=== PATIENT | female | born 1965 | race Caucasian/White ===

== ENCOUNTER → 2019-04-25 07:18 | Outpatient (CLI) | payer BC, SELFPAY ==
--- NOTE | ~2019-04-25 | MM_ITS ---
EXAMINATION: MM screening stuart BI w buddy HISTORY: Screening mammogram TECHNIQUE: Craniocaudal and mediolateral oblique 3-D tomosynthesis images were obtained and synthetic 2-D images were generated. CAD analysis was submitted and interpreted. COMPARISON: No prior mammogram is available for comparison at this institution. BREAST PARENCHYMAL COMPOSITION: There are scattered areas of fibroglandular density. FINDINGS: There is a developing mass in the upper central aspect of the right breast anteriorly and a focal asymmetry laterally in the left breast on CC view. There are benign right breast calcification s. IMPRESSION: 1. Developing right breast mass and focal left breast asymmetry. 2. Additional mammographic views and possible breast ultrasound are recommended. BI-RADS Category 0: Incomplete: Needs additional imaging evaluation. Reviewed, dictated and finalized at location A. IMPRESSION: 1. Developing right breast mass and focal left breast asymmetry. 2. Additional mammographic views and possible breast ultrasound are recommended . BI-RADS Category 0: Incomplete: Needs additional imaging evaluation.
== END ==
PROVIDERS: PCP Family Medicine; Visit Provider Family Medicine
DX: Z12.31 Encounter for screening mammogram for malignant neoplasm of breast (principal); R92.8 Other abnormal and inconclusive findings on diagnostic imaging of breast
CPT/HCPCS: 77063; 77067

== ENCOUNTER → 2019-05-10 08:51 | Outpatient (CLI) | payer BC, SELFPAY ==
--- NOTE | ~2019-05-10 | MMUS_ITS ---
EXAMINATION: MM diagnostic mammo BI, US breast RT limited HISTORY: Right breast mass and left breast asymmetry on screening mammogram TECHNIQUE: Additional 3-D tomosynthesis images of the breasts were performed and synthetic 2-D images were generated. CAD analysis was submitted and interpreted. High resolution limited right breast ult rasound was performed. COMPARISON: 04/24/2017, 11/07/2017, 11/05/2016 FINDINGS: MAMMOGRAPHIC FINDINGS: Left breast: No persistent asymmetry is identified with spot compression of the left breast. There is a return to baseline fibroglandular appearance. Right breast: There is a 7 mm oval, obscured, low density mass in the anterior third of the breast at the 12:00 location 2 cm from the nipple. No suspicious architectural distortion or calcification are identified. ULTRASOUND: There is an 8 mm x 6 mm cyst at the 12:00 location near the right nipple corresponding to the mammogr aphic finding in question. IMPRESSION: 1. No mammographic or sonographic evidence of malignancy. 2. Recommend routine screening mammography in one year. BI-RADS Category 2: Benign finding(s). Reviewed, dictated and finalized at location A. IMPRESSION: 1. No mammographic or sonographic evidence of malignancy. 2. Recommend routine screening mammography in one year. BI-RADS Category 2: Benign finding(s).
== END ==
PROVIDERS: PCP Family Medicine; Visit Provider Family Medicine
DX: R92.8 Other abnormal and inconclusive findings on diagnostic imaging of breast (principal)
CPT/HCPCS: 76642; 77066

== ENCOUNTER 2020-03-31 07:28 | Outpatient (CLI) | payer OTHER, SELFPAY ==
--- NOTE | ~2020-03-31 | US_ITS ---
EXAMINATION: US right upper quadrant EXAM DATE: 03/31/2020 08:00 INDICATION: Unspecified abdominal pain. TECHNIQUE: Multiple grayscale and Doppler images of the abdomen right upper quadrant were obtained (b y a technologist who performed the scan) and subsequently reviewed. There is no prior study for kishor oneill. FINDINGS: The pancreatic head and body are normal in appearance. The pancreatic tail is not visualized. The l iver has normal echogenicity and contour. There are no focal liver lesions identified. There is no evidence of intrahepatic biliary duct dilation. Portal venous flow was seen in the hepatopedal, nor mal direction and has normal Doppler waveform. No right-sided hydronephrosis. Common bile duct measures 3 mm, which is normal. The gallbladder wall is normal in thickness, with ex pected amount of distention. No sonographic evidence of pericholecystic fluid. There is no cholelit hiases. Technologist performing exam reports patient did not demonstrate sonographic Maravilla's sign. Please note that this sign is less reliable in patients who have received pain medication. Left lower quadrant area of pain was also scanned, no subcutaneous or abdominal wall mass identified. No evidence of hernia. IMPRESSION: 1. Unremarkable abdominal ultrasound exam. Reviewed, dictated and finalized at location A. SPECIALIST
== END 2020-03-31 07:29 ==
LOC: MICIMG 07:28
PROVIDERS: PCP Family Medicine; Visit Provider Physician Assistant
DX: R10.9 Unspecified abdominal pain (principal)
CPT/HCPCS: 76705

== ENCOUNTER → 2020-05-31 10:44 | Outpatient (CLI) | payer OTHER, SELFPAY ==
--- NOTE | ~2020-05-31 | MM_ITS ---
EXAMINATION: MM screening stuart BI w buddy HISTORY: Screening mammogram, family history of breast cancer in her mother. TECHNIQUE: Craniocaudal and mediolateral oblique 3-D tomosynthesis images were obtained and synthetic 2-D images were generated. CAD analysis was submitted and interpreted. COMPARISON: 05/10/2019, 04/25/2019, 11/07/2017 BREAST PARENCHYMAL COMPOSITION: There are scattered areas of fibroglandular density. FINDINGS: Scattered benign-appearing calcifications are present. There is no evidence of suspicious m ass, calcification, or architectural distortion to suggest malignancy in either breast. There has bee n no suspicious interval change. IMPRESSION: 1. No mammographic evidence of malignancy. 2. Recommend routine screening mammography in one year. BI-RADS Category 2: Benign finding(s). Reviewed, dictated and finalized at location A.
== END ==
PROVIDERS: PCP Family Medicine; Visit Provider Family Medicine
DX: Z12.31 Encounter for screening mammogram for malignant neoplasm of breast (principal)
CPT/HCPCS: 77063; 77067

== ENCOUNTER → 2021-07-12 07:35 | Outpatient (CLI) | payer BC, SELFPAY ==
--- NOTE | ~2021-07-12 | MM_ITS ---
EXAMINATION: MM screening stuart BI w buddy HISTORY: Screening mammogram TECHNIQUE: Craniocaudal and mediolateral oblique 3-D tomosynthesis images were obtained and synthetic 2-D images were generated. CAD analysis was submitted and interpreted. COMPARISON: 05/31/2020 bilateral screening mammogram 05/10/2019 bilateral diagnostic mammography and limited right breast ultrasound 04/25/2019, 11/07/2017, 11/05/2016 bilateral screening mammogram examinations BREAST PARENCHYMAL COMPOSITION: There are scattered areas of fibroglandular density. FINDINGS: There is chronic asymmetry, including upper outer right breast, not significantly changed s marilin 10/11/2015. No interval suspicious mass or new architectural distortion or any malignant calcification, skin thic kening or retraction is noted. Occasional benign calcifications. IMPRESSION: 1. No mammographic evidence of malignancy. 2. Recommend routine screening mammography in one year. BI-RADS Category 2: Benign finding(s). Reviewed, dictated and finalized at location A.
== END ==
PROVIDERS: PCP Family Medicine; Visit Provider Family Medicine
DX: Z12.31 Encounter for screening mammogram for malignant neoplasm of breast (principal)
CPT/HCPCS: 77063; 77067

== ENCOUNTER 2022-07-08 17:06 | Emergency (ER) | payer SELFPAY ==
--- NOTE | ~2022-07-08 | XR_ITS ---
EXAM: XR lumbar spine 2-3V DATE: 07/08/2022 18:07 HISTORY: low back pain s/p fall yesterday . COMPARISON: None available. FINDINGS: 5 nonrib-bearing lumbar-type vertebral bodies. Pedicles intact. Normal vertebral body alig nment. Vertebral body heights preserved. Multilevel lumbar degenerative disc disease, severe at L4-5 and L5-S1. Loss of the normal lumbar lordosis. Abdominal aortic calcification without evident aneurys m. Moderate mid and lower lumbar facet arthropathy. No fracture or dislocation. IMPRESSION: No acute fracture or traumatic malalignment detected in the lumbar spine. Reviewed, dictated and finalized at location K.
--- NOTE | ~2022-07-08 | XR_ITS ---
EXAM: XR ribs RT 2V DATE: 07/08/2022 18:07 HISTORY: rt lateral/posterior rib pain s/p fall yesterday . COMPARISON: None available. FINDINGS: Normal mineralization. Slight cortical irregularity in the anterior right ninth rib. No ot her fracture or dislocation. No lytic or blastic lesion. Joint spaces and physes are maintained. No e rosion or periosteal change. 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 IMPRESSION: Slight right anterior ninth rib cortical irregularity, may represent a nondisplaced acute fracture or old healed fracture, correlate with point tenderness. Reviewed, dictated and finalized at location K. IMPRESSION: Slight right anterior ninth rib cortical irregularity, may represen t a nondisplaced acute fracture or old healed fracture, correlate with point te nderness.
--- NOTE | ~2022-07-08 | XR_ITS ---
EXAM: XR hip RT min 2V DATE: 07/08/2022 18:07 HISTORY: fall yesterday . COMPARISON: 09/07/2013, images only. FINDINGS: Severe degenerative change in the lower lumbar spine. No fracture or dislocation. Mild rig ht hip osteoarthritis. Scattered hip and pelvic enthesopathy. IMPRESSION: No acute osseous finding in the right hip. Reviewed, dictated and finalized at location K.
--- NOTE | ~2022-07-08 | XR_ITS ---
EXAM: XR forearm RT 2V DATE: 07/08/2022 18:07 HISTORY: rt forearm pain s/p fall yesterday . COMPARISON: None available. FINDINGS: Normal mineralization. No fracture or dislocation. No lytic or blastic lesion. Joint space s and physes are maintained. Lateral epicondylar enthesopathy. No erosion or periosteal change. Soft tissues within normal limits. IMPRESSION: No acute osseous finding in the right forearm. Reviewed, dictated and finalized at location K.
[2022-07-08 17:17] VITALS: BP 112/73; PULSE 97; RESP 16; TEMP 37.1; O2SAT 99
[2022-07-08 17:19] VITALS: BP 112/73; PULSE 97; RESP 16; TEMP 37.1; O2SAT 99
--- NOTE | 2022-07-08 17:24 | ED.FALL ---
HPI - Fall General Chief Complaint: Fall Stated Complaint: Right Side Body Pain Time Seen by Provider: 07/08/22 17:20 Source: patient Mode of arrival: ambulatory Limitations: no limitations History of Present Illness HPI Narrative: Adenike is a 57-year-old female patient presenting to the clinic today with complaints of right rib pain, forearm pain, head pain, hip pain, and back pain after falling into a concrete pole yesterday that was only filled with approximately 2 ft of water. States she had a large goose egg on her right side of the head yesterday afterwards however that has improved. Rates the headache currently a 2/10. Denies any nausea/vomiting/dizziness/visual changes. She denies losing consciousness or any neck pain. Reports it hurts to take a deep breath over her right posterior ribs. Related Data Home Medications Medication Instructions Recorded Confirmed venlafaxine 75 mg capsule,extended 75 mg PO DIRECTED 07/08/22 07/08/22 release 24 hr Allergies Allergy/AdvReac Type Severity Reaction Status Date / Time No Known Allergies Allergy Unknown Unverified 03/16/14 21:11 Review of Systems Review of Systems: Pertinent positives per HPI. Patient denies any fever, chills, rash, visual changes, dizziness, cough, runny nose, sore throat, shortness of breath, chest pain, palpitations, nausea, vomiting, diarrhea, constipation, abdominal pain, or any urinary issues. [facility] Past Medical History Medical History (Updated 07/08/22 @ 18:26 by Mayank Tiwari, CONVEYOR MAN) Colonoscopy refused Depression HLD (hyperlipidemia) Hypothyroidism Surgical History Surgical History H/O lumpectomy History of partial hysterectomy Family History Family History (Updated 12/22/18 @ 10:33 by Danitza Crane PA-C) Mother Family history of malignant neoplasm of breast in first degree relative, Onset Age: 52 Sibling Throat cancer Heart disease Father Patient's father is , Onset Age: 42 From [place] Acute myocardial infarction Other Family history of arthritis Family history of throat cancer Social History Social History (Updated 12/22/18 @ 10:32 by Danitza Crane PA-C) Smoking packs per day: 1 Smoking cigarettes per day: 20.0 Years smoked: 20 Smoking pack-years: 20.00 Smoking status: Current every day smoker Tobacco type: cigarettes Second hand tobacco smoke exposure: Yes Alcohol intake: never Substance use: never Comments At the time of my signature, I reviewed and agree with the nursing past medical, surgical, social, and family history. There is no relevant family history pertinent to the patient complaint. Exam Narrative: General: Well-developed, well nourished, in no apparent distress Head: Normocephalic, atraumatic. Small knotted area to the right side of the lateral head with mild tenderness to palpation Eyes: Pupils equally round and reactive to light bilaterally, EOM intact, sclera and conjunctive clear, no discharge, lids normal Ears: TMs intact and clear, ear canals clear, no drainage, grossly hearing normal. Nose: Nares patent, no discharge, no inflammation, no sinus tenderness. Mouth: Oropharynx without lesions or masses, good dentition, MMM. Tongue midline, even rise and fall of uvula Neck: Supple, trachea midline, no enlargement of anterior or posterior cervical nodes, no thyroid masses or goiter palpable. Cardio: Regular rate and rhythm, s1 and s2 normal, no murmur appreciated. Resp: Clear to auscultation over the left lung, right lung sounds diminished, no rhonchi, rales, wheezing or rubs Musculoskeletal: No deformity, non-tender to palpation, grossly normal range of motion, muscle strength strong and equal, peripheral pulse strong, no edema, no cyanosis, normal gait and station Neuro: Alert and oriented x4 with normal speech, no focal deficits, cranial nerves I through XII
== END 2022-07-08 18:37 | disposition home or self-care (01) ==
PROVIDERS: Emergency Provider Nurse Practitioner Family; PCP Family Medicine
DX: S22.31XA Fracture of one rib, right side, initial encounter for closed fracture (principal); S09.90XA Unspecified injury of head, initial encounter; S70.01XA Contusion of right hip, initial encounter; S50.11XA Contusion of right forearm, initial encounter; S20.211A Contusion of right front wall of thorax, initial encounter; W17.2XXA Fall into hole, initial encounter; M51.36 Other intervertebral disc degeneration, lumbar region; F17.210 Nicotine dependence, cigarettes, uncomplicated; F32.A Depression, unspecified; E78.5 Hyperlipidemia, unspecified; E03.9 Hypothyroidism, unspecified
CPT/HCPCS: 71100; 72100; 73090; 73502; 99214; G0463

== ENCOUNTER 2022-12-04 12:44 | Emergency (ER) | payer BC, SELFPAY ==
--- NOTE | ~2022-12-04 | XR_ITS ---
EXAMINATION: XR chest 2V DATE: 12/04/2022 13:16 INDICATION: Cough and congestion. TECHNIQUE: Frontal and lateral views of the chest were obtained. COMPARISON: Right rib radiographs 07/08/2022 FINDINGS: There is no pneumonia, pleural effusion, or pneumothorax. The heart size is normal. There a re old healed right rib fractures. IMPRESSION: 1. No acute cardiopulmonary disease. Reviewed, dictated and finalized at location E.
--- NOTE | 2022-12-04 12:45 | ED.URI ---
HPI - URI/Sore Throat General Chief Complaint: Upper Respiratory Infection Stated Complaint: Sinus/Cough Time Seen by Provider: 12/04/22 13:00 Source: patient and RN notes reviewed Mode of arrival: ambulatory Limitations: no limitations History of Present Illness HPI Narrative: 57-year-old female presents concern for cough, chest congestion, hoarse voice. Reports she has been sick for about 2 weeks, she called her doctor's office and they prescribed her Augmentin which she is on day 2 of. Reports since then she has began having chest congestion and hoarseness. She reports she has been taking Mucinex DM without relief MD elicited complaint: cough and nasal congestion Related Data Home Medications Medication Instructions Recorded Confirmed amoxicillin 875 mg-potassium 1 tablet DIRECTED 12/04/22 12/04/22 clavulanate 125 mg tablet fluoxetine 20 mg capsule 20 mg DIRECTED 12/04/22 12/04/22 Allergies Allergy/AdvReac Type Severity Reaction Status Date / Time escitalopram [From Lexapro] Allergy Intermediate Palpitation Verified 12/04/22 12:56 s Review of Systems Review of Systems: CONSTITUTIONAL: Reports malaise, fatigue, dizziness EYES: Denies visual changes, redness, or discharge. ENT: Reports rhinorrhea, congestion, sinus pain CARDIOVASCULAR: Denies chest pain, palpitations, or edema. RESPIRATORY: Reports cough, chest congestion, hoarse voice. Denies dyspnea. GASTROINTESTINAL: Denies abdominal pain, nausea, vomiting, diarrhea SKIN: Denies rash or itching. MUSCULOSKELETAL: Denies myalgia. NEUROLOGIC: Denies headache. All systems reviewed & are unremarkable except as noted in HPI and below PMFSH Past Medical History Medical History (Updated 12/04/22 @ 13:22 by Maya Luis NP) Colonoscopy refused Depression HLD (hyperlipidemia) Hypothyroidism Surgical History Surgical History H/O lumpectomy History of partial hysterectomy Family History Family History (Updated 12/22/18 @ 10:33 by Danitza Lemon PA-C) Mother Family history of malignant neoplasm of breast in first degree relative, Onset Age: 52 Sibling Throat cancer Heart disease Father Patient's father is , Onset Age: 42 From [place] Acute myocardial infarction Other Family history of arthritis Family history of throat cancer Social History Social History (Updated 12/22/18 @ 10:32 by Danitza Lemon PA-C) Smoking packs per day: 1 Smoking cigarettes per day: 20.0 Years smoked: 20 Smoking pack-years: 20.00 Smoking status: Current every day smoker Tobacco type: cigarettes Second hand tobacco smoke exposure: Yes Alcohol intake: never Substance use: never Comments At time of signature, agree with nursing past medical, surgical, social and family history. There is no relevant family history pertinent to the presenting complaint Exam Narrative: GENERAL: Well-appearing, well-nourished, and in no acute distress. HEAD: Normocephalic EYES: PERRLA, conjunctivae clear ENT: Nares clear, turbinates edematous and erythematous, clear discharge. Mucous membranes moist. TM pearly dial with dull light reflex bilaterally; no tragal tenderness. Oropharynx not erythematous without lesions. Tonsils not enlarged and without exudate, no drooling, no hoarseness, no trismus, uvula midline. NECK: Supple. No lymphadenopathy CHEST: Clear to auscultation, breath sounds equal. No wheezing, rhonchi, rales, or stridor. No respiratory distress, speaks in full sentences. HEART: Regular rate and rhythm. No murmur heard. SKIN: Warm, dry, no rash. NEURO: Alert and oriented x3. PSYCH: Normal mood and affect Course Course Emergency Course: Patient is aware of diagnosis, understands and agrees to treatment plan. Anticipatory guidance given. Patient agrees to follow-up as directed and is aware of reasons to seek care at the emergency department.
[2022-12-04 12:56] VITALS: BP 126/67; PULSE 79; RESP 18; TEMP 36.3; O2SAT 98
[2022-12-04 12:57] VITALS: BP 126/67; PULSE 79; RESP 18; TEMP 36.3; O2SAT 98
== END 2022-12-04 13:26 | disposition home or self-care (01) ==
PROVIDERS: Emergency Provider Nurse Practitioner; PCP Family Medicine
DX: J40 Bronchitis, not specified as acute or chronic (principal); F17.210 Nicotine dependence, cigarettes, uncomplicated; F32.A Depression, unspecified; E78.5 Hyperlipidemia, unspecified; E03.9 Hypothyroidism, unspecified; Z90.711 Acquired absence of uterus with remaining cervical stump
CPT/HCPCS: 71046; 99213; G0463

== ENCOUNTER → 2023-01-17 07:58 | Outpatient (CLI) | payer BC, SELFPAY ==
--- NOTE | ~2023-01-17 | MM_ITS ---
EXAMINATION: MM screening stuart BI w buddy HISTORY: Screening TECHNIQUE: Craniocaudal and mediolateral oblique 3-D tomosynthesis images were obtained and synthetic 2-D images were generated. CAD analysis was submitted and interpreted. COMPARISON: Comparison to multiple prior studies sequentially, with oldest reviewed study dated 11/05. BREAST PARENCHYMAL COMPOSITION: There are scattered areas of fibroglandular density. FINDINGS: There is no evidence of suspicious mass, calcification, or architectural distortion to sugg est malignancy in either breast. There has been no suspicious interval change. IMPRESSION: 1. No mammographic evidence of malignancy. 2. Recommend routine screening mammography in one year. BI-RADS Category 1: Negative Reviewed, dictated and finalized at location A. ID CHLORINE OPERATOR
== END ==
DX: Z12.31 Encounter for screening mammogram for malignant neoplasm of breast (principal)
CPT/HCPCS: 77063; 77067

== ENCOUNTER → 2023-01-24 09:56 | Outpatient (CLI) | payer BC, SELFPAY ==
--- NOTE | ~2023-01-24 | MR_ITS ---
EXAMINATION: MR brain/brain stem wo con DATE: 01/24/2023 10:38 INDICATION: Memory impairment s/p pt fall into concrete pool 06/2022. TECHNIQUE: Magnetic resonance imaging (MRI) of the brain and brainstem was performed without intraven ous contrast. Sequences included sagittal and axial T1-weighted SE, axial diffusion-weighted FS EPI A SSET, axial T2*-weighted GRE, axial T2-weighted FLAIR Propeller, and axial T2-weighted Propeller. Krystian arent diffusion coefficient (ADC) maps were created. COMPARISON: None. FINDINGS: No abnormal restricted diffusion to suggest acute ischemic infarct. No MRI evidence of hemorrhage or extra-axial collection. Small foci of susceptibility, nonspecific but most likely reflective of prior microhemorrhages. Normal white matter signal. No evidence of advanced or lobar predominant parenchym al volume loss. The basilar cisterns are patent. Flow voids are preserved. Minimal bilateral mastoid fluid, small right posterior ethmoid retention cyst/polyp, the remaining are within normal limits. Gl obes and orbital contents are within normal limits. IMPRESSION: Unremarkable MR brain findings. Reviewed, dictated and finalized at location K. STERED VETERINARY TECHNICIAN
== END ==
DX: R41.3 Other amnesia (principal)
CPT/HCPCS: 70551

== ENCOUNTER 2024-04-09 08:48 | Outpatient (CLI) | payer BC, SELFPAY | END 2024-04-09 08:49 | disposition home or self-care (01) | PROVIDERS: PCP Family Medicine; Visit Provider Family Medicine | DX: Z12.31 Encounter for screening mammogram for malignant neoplasm of breast (principal); Z80.3 Family history of malignant neoplasm of breast | CPT/HCPCS: 77063; 77067 ==

== ENCOUNTER 2024-08-16 14:22 | Outpatient (CLI) | payer BC, SELFPAY ==
--- NOTE | ~2024-08-16 | XR_ITS ---
EXAMINATION: XR lg joint inject/asp w image DATE: 08/16/2024 15:15 INDICATION: Left hip osteoarthritis with pain TECHNIQUE: A time-out was performed to verify the patient's name, date of , and procedure to b e performed. The procedure including the risks, benefits, and alternatives was discussed with the pat ient. Risks discussed included bleeding and infection. The patient understood the risks and agreed to proceed. The skin overlying the left hip joint was prepped and draped in usual sterile fashion. An esthetic was administered with 1% lidocaine subcutaneously. A 22 G needle was advanced under fluoros copic guidance into the joint. Injection of 1 mL of Omnipaque 240 confirmed intra-articular position of the needle. Subsequently, injectate consisting of 3 mL of a 2:1 mixture of 0.5% Marcaine:80 mg/m L Depo-Medrol for a total dose of 80 mg Depo-Medrol was instilled. Washout of contrast was seen confi rming intra-articular administration. The needle was removed and the entry site was cleaned and dress ed. There were no immediate complications. Fluoroscopy exposure time was 0.1 minutes. The total numb er of images was 2. Total DAP was 0.416 Gycm^2. FINDINGS: Real-time fluoroscopy demonstrates the needle in the left hip joint. Patient's pain prior t o procedure:11/18. Patient's pain following the procedure: 2. Severe osteoarthritis at the left h ip. IMPRESSION: 1. Successful left hip joint injection of local anesthetic and steroid with decrease in the patient's presenting pain. Reviewed, dictated and finalized at location A. IMPRESSION: 1. Successful left hip joint injection of local anesthetic and steroid with dec rease in the patient's presenting pain.
--- OUTSIDE RECORDS SUMMARY | 2024-08-16 14:29 | XMS_ITS | Clinical Summary ---
Author Organization [facility] Address [address] [place] [id number] Care Team Providers Care Ancillary Services Manager Therapy Name Role Phone Unavailable Primary Care Provider Unavailabl e Social History Tobacco Use Types Packs/Day Years Used Date Smoking Tobacco: Never Assessed Comments Unknown Sex and Gender Information Value Date Recorded Sex Assigned at Not on file Legal Sex Female 7:40 PM CDT Gender Identity Not on file Sexual Orientation Not on file Plan of Treatment Health Maintenance Due Date Last Done Comments Cervical Cancer Screening Pa p Smear (Age 30 to 64) Every 3 Years 1965 Colorectal Cancer Screening Colonoscopy (10 Years) 1965 Annual Physical 1968 Hepatitis C 05/04/1983 DTaP, Tdap and Td Vaccines ( 1 - Tdap) 1984 Cervical Cancer Screening Pa p with HPV Testing (Age 30 to 64) Every 5 Years 05/04/1995 Cervical Cancer Screening with HPV 05/04/1995 Mammogram Screening 2005 Pneumococcal Vaccine: 50+ Ye ars (1 of 1 - PCV) 05/04/2015 Zoster Vaccines (1 of 2) 05/04/2015 COVID-19 Vaccine (2023-2 5 season) 2023 Meningococcal B Vaccine Aged Out No l onger eligible based on patient's age to complete this topic Meningococcal Vaccine Aged Out No nathaniel tory eligible based on patient's age to complete this topic RSV Immunizations Under 20 Months Aged Out No longer eligible based on patient's age to complete this topic
--- OUTSIDE RECORDS SUMMARY | 2024-08-16 14:30 | XMS_ITS | Data Portability ---
Author Organization [facility] VICKIEOzziemay Lomas Address [address] [place] [address] Care Team Providers Care Binder Roller Name Role Phone ADELIA GALAVIZ Primary Care Provider [phone] Assessment No assessment recorded. Plan of Treatment Reminders Order Date Submit Date Provider Last Modified By Organization Details Last Modified Time Details Appointments ANY 15 2024 03:30P M Adelia Galaviz MD Not available Not available Not available Lab vitamin D, 25-hydrox y, total, serum 2023 024 [facility], [address] [place] [address], [address], [place], [address], 11/15/2023 08:26:53 lipid panel, serum 2023 024 [facility], [address] [place] [address], [address], [place], [address], 11/15/2023 08:26:51 CMP, serum or plasma 2023 024 [facility], [facility] [facility], [address], [place], [address], 11/15/2023 08:26:52 vitamin B12 + folate, serum or blood 2022 023 [facility], [address] [facility] [address], [address], [place], [address], 12/18/2022 08:29:56 TSH + free T4, serum 2022 023 [facility], [address] [facility], [address], [place], [address], 12/18/2022 08:29:56 CBC w/ auto diff 2022 023 [facility], [address] [facility], [address], [place], [address], 12/18/2022 06:16:55 Referral None recorded. Procedures None recorded. Surgeries None recorded. Imaging MAMMO, screening , digital, bilateral 2023 024 [facility], [address], [place], [address], 04/11/2024 07:42:43 MRI, brain, w/o contrast 2022 023 [facility], [address], [place], [address], 01/26/2023 07:21:27 Medication Orders fluoxetin e 40 mg capsule 2022 023 [id number], [address] [facility], [place], [place], [id number], 12/11/2022 21:39:50 Patient TargetsNo targets recorded. Patient Instructions Encounter Date Encounter Id Patient Instructions Last Modified By Organization Details Last Modified Time 11/10/2022 [id number] A healthy lifestyle: care instructions Not available 11/10/2022 21:15:33 12/09/2022 [id number] A healthy lifestyle: care instructions Not available 12/11/2022 21:41:05 01/12/2023 [id number] A healthy lifestyle: care instructions Not available 01/25/2023 12:24:51 04/14/2023 [id number] A healthy lifestyle: care instructions Not available 04/17/2023 09:25:14 10/30/2023 [id number] A healthy lifestyle: care instructions Not available 10/31/2023 08:55:00 Quitting Tobacco : Care Instructions Not available 10/31/2023 08:56:21 Reason for Referral None Reported. Results Created Date Observation Date Name Description Value Unit Range Abnormal Flag Note LastModifiedBy Organization Detail LastModifiedTime 10/15/1910/14/2022 LIPID PANEL cholesterol, total 201 mg/dL 100-19 9 above high normal Not Available [facility] Department [address] [place] [address], [address], 10/14/2022 21:07:40 10/15/19 23 10/14/2022 LIPID PANEL triglyceride s 332 mg/dL 0-149 above high normal Not Available [facility] Department [address] [place] [address], [address], 10/14/2022 21:07:40 10/15/19 23 10/14/2022 LIPID PANEL HDL cholesterol 61 mg/dL 40-999 Not Available [facility] Department [address] [place] [address], [address], 10/14/2022 21:07:40 10/15/19 23 10/14/2022 LIPID PANEL VLDL cholesterol dom 66 mg/dL 5-40 above high normal Not Available [facility] [address] [place] [address], [address], 10/14/2022 21:07:40 10/15/19 23 10/14/2022 LIPID PANEL LDL chol calc ([facility]) 126 mg/dL 0-99 above high normal Not Available [facility] [address] [place] [address], [address], 10/14/2022 21:07:40 10/15/19 23 10/15/2022 CMP14 +EGFR glucose 91 mg/dL 70-99 Not Available [facility] ([facility]) [address] [facility], [place], [address], 10/15/2022 08:23:58 10/15/19 23 10/15/2022 CMP14 +EGFR BUN 12 mg/dL 6-24 Not Available [facility] ([facility]) [address] [place], [address], 10/15/2022 08:23:58 10/15/19 23 10/15/2022 CMP14 +EGFR creatinine 0.87 mg/dL 0.57-1 .00 Not Available [facility] ([facility]) [address] [facility], [place], [address], 10/15/2022 08:23:58 10/15/19 23 10/15/2022 CMP14 +EGFR eGFR 78 mL/mi n/1.7 3 >59 Not Available [facility] ([facility]) [address] [facility], [place], [address], 10/15/2022 08:23:58 10/15/19 23 10/15/2022 CMP14 +EGFR BUN/creatini ne ratio 14 9-23 Not Available [facility] ([facility]) [address] [place], [address], 10/15/2022 08:23:58 10/15/1910/15/2022 CMP14 +EGFR sodium 141 mmol/ L 134-14 4 Not Available [facility] ([facility]) [address] [place], [address], 10/15/2022 08:23:58 10/15/1910/15/2022 CMP14 +EGFR potassium 4.5 mmol/ L 3.5-5. 2 Not Available [facility] ([facility]) [address] [place], [address], 10/15/2022 08:23:58 10/15/1910/15/2022 CMP14 +EGFR chloride 105 mmol/ L 96-106 Not Available [facility] ([facility]) [address] [place], [address], 10/15/2022 08:23:58 10/15/19 23 10/15/2022 CMP14 +EGFR carbon dioxide, total 24 mmol/ L 20- Not Available [facility] ([facility]) [address] [place], [address], 10/15/2022 08:23:58 10/15/19 23 10/15/2022 CMP14 +EGFR calcium 8.9 mg/dL 8.7-10 .2 Not Available [facility] ([facility]) [address] [place], [address], 10/15/2022 08:23:58 10/15/19 23 10/15/2022 CMP14 +EGFR protein, total 6.3 g/dL 6.0-8. 5 Not Available [facility] ([facility]) [address] [facility], [place], [address], 10/15/2022 08:23:58 10/15/19 23 10/15/2022 CMP14 +EGFR albumin 4.4 g/dL 3.8-4. 9 Not Available [facility] ([facility]) [address] [place], [address], 10/15/2022 08:23:58 10/15/1910/15/2022 CMP14 +EGFR globulin, total 1.9 g/dL 1.5-4. 5 Not Available [facility] ([facility]) [address] [place], [address], 10/15/2022 08:23:58 10/15/1910/15/2022 CMP14 +EGFR A/G ratio 2.3 1.2-2. 2 above high normal Not Available [facility] ([facility]) [address] [place], [address], 10/15/2022 08:23:58 10/15/19 23 10/15/2022 CMP14 +EGFR bilirubin, total <0.2 mg/dL 0.0-1. 2 Not Available [facility] ([facility]) [address] [facility], [place], [address], 10/15/2022 08:23:58 10/15/19 23 10/15/2022 CMP14 +EGFR alkaline phosphatase 91 IU/L 44-121 Not Available [facility] ([facility] [address] [facility], [place], [address], 10/15/2022 08:23:58 10/15/19 23 10/15/2022 CMP14 +EGFR AST (SGOT) 11 IU/L 0-40 Not Available [facility] ([facility]) [address] [facility], [place], [address], 10/15/2022 08:23:58 10/15/19 23 10/15/2022 CMP14 +EGFR ALT (SGPT) 12 IU/L 0-32 Not Available [facility] ([facility]) [address] [facility], [place], [address], 10/15/2022 08:23:58 10/15/19 23 10/15/2022 VITAM IN D, 25-HY DROXY vitamin D, 25-hydroxy 51.3 NG/mL 30.0-1 00.0 Vitam in D defic iency has been defin ed by the Insti tute of Medic ine and an Endoc rine Socie ty pract ice guide line as a level of serum 25-OH vitam in D less than 20 ng/mL (1,2) . The Endoc rine Socie ty went on to furth er defin e vitam in D insuf ficie ncy as a level betwe en 21 and 29 ng/mL (2). 1. IOM (Inst itute of Medic ine). 2009. Dieta ry refer ence intleonarda es for calci um and D. Deysi smith DC: The [facility] Press . 2. Fermin wu MF, Mckenzie ey [place], [place] off-F errar i CARMEN, et al. Evalu ation , treat ment, and preve ntion of vitam in D defic iency : an Endoc rine Socie ty clini dom pract ice guide line. JCEM. 2010; 96(1) :1911 -30. Not Available [facility] ([facility]) [address] [facility], [place], [address], 10/15/2022 08:23:59 12/18/19 23 12/18/2022 CBC WITH DIFFE RENTI AL/PL ATELE T WBC 6.5 x10e3 /uL 3.4-10 .8 Not Available [facility] ([facility]) [address] [facility], [place], [address], 12/18/2022 06:16:55 12/18/1912/18/2022 CBC WITH DIFFE RENTI AL/PL ATELE T RBC 4.41 x10e6 /uL 3.77-5 .28 Not Available [facility] ([facility]) [address] [facility], [place], [address], 12/18/2022 06:16:55 12/18/1912/18/2022 CBC WITH DIFFE RENTI AL/PL ATELE T hemoglobin 14.1 g/dL 11.1-1 5.9 Not Available [facility] ([facility]) [address] [facility], [place], [address], 12/18/2022 06:16:55 12/18/1912/18/2022 CBC WITH DIFFE RENTI AL/PL ATELE T hematocrit 41.0 % 34.0-4 6.6 Not Available [facility] ([facility]) [address] [facility], [place], [address], 12/18/2022 06:16:55 12/18/1912/18/2022 CBC WITH DIFFE RENTI AL/PL ATELE T MCV 93 fL 79-97 Not Available [facility] ([facility]) [address] [place], [address], 12/18/2022 06:16:55 12/18/19 23 12/18/2022 CBC WITH DIFFE RENTI AL/PL ATELE T MCH 32.0 pg 26.6-3 3.0 Not Available [facility] ([facility]) [address] [facility], [place], [address], 12/18/2022 06:16:55 12/18/19 23 12/18/2022 CBC WITH DIFFE RENTI AL/PL ATELE T MCHC 34.4 g/dL 31.5-3 5.7 Not Available [facility] ([facility]) [address] [facility], [place], [address], 12/18/2022 06:16:55 12/18/1912/18/2022 CBC WITH DIFFE RENTI AL/PL ATELE T RDW 13.2 % 11.7-1 5.4 Not Available [facility] ([facility]) [address] [facility], [place], [address], 12/18/2022 06:16:55 12/18/1912/18/2022 CBC WITH DIFFE RENTI AL/PL ATELE T platelets 418 x10e3 /uL 150-45 0 Not Available [facility] ([facility]) [address] [facility], [place], [address], 12/18/2022 06:16:55 12/18/19 23 12/18/2022 CBC WITH DIFFE RENTI AL/PL ATELE T neutrophils 69 % notest ab. Not Available [facility] ([facility]) [address] [place], [address], 12/18/2022 06:16:55 12/18/1912/18/2022 CBC WITH DIFFE RENTI AL/PL ATELE T lymphs 21 % notest ab. Not Available [facility] ([facility]) [address] [place], [address], 12/18/2022 06:16:55 12/18/19 23 12/18/2022 CBC WITH DIFFE RENTI AL/PL ATELE T monocytes 8 % notest ab. Not Available [facility] ([facility]) [address] [facility], [place], [address], 12/18/2022 06:16:55 12/18/1912/18/2022 CBC WITH DIFFE RENTI AL/PL ATELE T eos 1 % notest ab. Not Available [facility] ([facility]) [address] [facility], [place], [address], 12/18/2022 06:16:55 12/18/19 23 12/18/2022 CBC WITH DIFFE RENTI AL/PL ATELE T basos 1 % notest ab. Not Available [facility] ([facility]) [address] [facility], [place], [address], 12/18/2022 06:16:55 12/18/1912/18/2022 CBC WITH DIFFE RENTI AL/PL ATELE T neutrophils (absolute) 4.5 x10e3 /uL 1.4-7. 0 Not Available [facility] ([facility]) [address] [place], [address], 12/18/2022 06:16:55 12/18/1912/18/2022 CBC WITH DIFFE RENTI AL/PL ATELE T lymphs (absolute) 1.4 x10e3 /uL 0.7-3. 1 Not Available [facility] ([facility]) [address] [facility], [place], [address], 12/18/2022 06:16:55 12/18/1912/18/2022 CBC WITH DIFFE RENTI AL/PL ATELE T monocytes(ab solute) 0.5 x10e3 /uL 0.1-0. 9 Not Available [facility] ([facility]) [address] [facility], [place], [address], 12/18/2022 06:16:55 12/18/1912/18/2022 CBC WITH DIFFE RENTI AL/PL ATELE T eos (absolute) 0.1 x10e3 /uL 0.0-0. 4 Not Available [facility] ([facility]) [address] [place], [address], 12/18/2022 06:16:55 12/18/19 23 12/18/2022 CBC WITH DIFFE RENTI AL/PL ATELE T baso (absolute) 0.1 x10e3 /uL 0.0-0. 2 Not Available [facility] ([facility]) [address] [place], [address], 12/18/2022 06:16:55 12/18/1912/18/2022 CBC WITH DIFFE RENTI AL/PL ATELE T immature granulocytes 0 % notest ab. Not Available [facility] ([facility]) [address] [place], [address], 12/18/2022 06:16:55 12/18/1912/18/2022 CBC WITH DIFFE RENTI AL/PL ATELE T immature grans (abs) 0.0 x10e3 /uL 0.0-0. 1 Not Available [facility] ([facility]) [address] [place], [address], 12/18/2022 06:16:55 12/18/1912/18/2022 TSH+F REE T4 TSH 3.310 uIU/m L 0.450- 4.500 Not Available [facility] ([facility]) [address] [place], [address], 12/18/2022 08:29:56 12/18/1912/18/2022 TSH+F REE T4 T4,free(dire ct) 1.34 NG/dL 0.82-1 .77 Not Available [facility] ([facility]) [address] [place], [address], 12/18/2022 08:29:56 12/18/1912/18/2022 VITAM IN B12 AND FOLAT E vitamin B12 252 pg/mL 232-12 45 Not Available [facility] ([facility]) [address] [place], [address], 12/18/2022 08:29:56 12/18/19 23 12/18/2022 VITAM IN B12 AND FOLAT E folate (folic acid), serum 10.8 NG/mL >3.0 A serum folat e travis ntrat ion of less than 3.1 ng/mL is consi dered to repre sent clini dom defic iency . Not Available [facility] ([facility]) [address] [place], [address], 12/18/2022 08:29:56 11/14/19 24 11/15/2023 LIPID PANEL cholesterol, total 183 mg/dL 100-19 9 Not Available [facility] ([facility]) [address] [place], [address], 11/15/2023 08:26:51 11/14/19 24 11/15/2023 LIPID PANEL triglyceride s 98 mg/dL 0-149 Not Available [facility] ([facility]) [address] [place], [address], 11/15/2023 08:26:51 11/14/19 24 11/15/2023 LIPID PANEL HDL cholesterol 51 mg/dL >39 Not Available [facility] ([facility]) [address] [place], [address], 11/15/2023 08:26:51 11/14/19 24 11/15/2023 LIPID PANEL VLDL cholesterol dom 18 mg/dL 5-40 Not Available [facility]) [address] [place], [address], 11/15/2023 08:26:51 11/14/19 24 11/15/2023 LIPID PANEL LDL chol calc ([facility]) 114 mg/dL 0-99 above high normal Not Available [facility] ([facility]) [address] [facility], [place], [address], 11/15/2023 08:26:51 11/14/1911/15/2023 CMP14 +EGFR glucose 131 mg/dL 70-99 above high normal Not Available [facility] ([facility]) [address] [place], [address], 11/15/2023 08:26:52 11/14/1911/15/2023 CMP14 +EGFR BUN 17 mg/dL 6-24 Not Available [facility] ([facility]) [address] [place], [address], 11/15/2023 08:26:52 11/14/1911/15/2023 CMP14 +EGFR creatinine 0.84 mg/dL 0.57-1 .00 Not Available [facility] ([facility]) [address] [place], [address], 11/15/2023 08:26:52 11/14/1911/15/2023 CMP14 +EGFR eGFR 80 mL/mi n/1.7 3 >59 Not Available [facility] ([facility]) [address] [facility], [place], [address], 11/15/2023 08:26:52 11/14/1911/15/2023 CMP14 +EGFR BUN/creatini ne ratio 20 9- Not Available [facility] ([facility]) [address] [place], [address], 11/15/2023 08:26:52 11/14/1911/15/2023 CMP14 +EGFR sodium 140 mmol/ L 134-14 4 Not Available [facility] ([facility]) [address] [place], [address], 11/15/2023 08:26:52 11/14/19 24 11/15/2023 CMP14 +EGFR potassium 5.1 mmol/ L 3.5-5. 2 Not Available [facility] ([facility]) [address] [place], [address], 11/15/2023 08:26:52 11/14/1911/15/2023 CMP14 +EGFR chloride 102 mmol/ L 96-106 Not Available [facility] ([facility]) [address] [place], [address], 11/15/2023 08:26:52 11/14/1911/15/2023 CMP14 +EGFR carbon dioxide, total 24 mmol/ L 20-29 Not Available [facility] ([facility]) [address] [place], [address], 11/15/2023 08:26:52 11/14/1911/15/2023 CMP14 +EGFR calcium 9.4 mg/dL 8.7-10 .2 Not Available [facility] ([facility]) [address] [facility], [place], [address], 11/15/2023 08:26:52 11/14/1911/15/2023 CMP14 +EGFR protein, total 6.5 g/dL 6.0-8. 5 Not Available [facility] ([facility]) [address] [place], [address], 11/15/2023 08:26:52 11/14/1911/15/2023 CMP14 +EGFR albumin 4.4 g/dL 3.8-4. 9 Not Available [facility] ([facility]) [address] [place], [address], 11/15/2023 08:26:52 11/14/1911/15/2023 CMP14 +EGFR globulin, total 2.1 g/dL 1.5-4. 5 Not Available [facility] ([facility]) [address] [place], [address], 11/15/2023 08:26:52 11/14/19 24 11/15/2023 CMP14 +EGFR bilirubin, total 0.3 mg/dL 0.0-1. 2 Not Available [facility] ([facility]) [address] [facility], [place], [address], 11/15/2023 08:26:52 11/14/19 24 11/15/2023 CMP14 +EGFR alkaline phosphatase 87 IU/L 44-121 Not Available [facility]) [address] [facility], [place], [address], 11/15/2023 08:26:52 11/14/1911/15/2023 CMP14 +EGFR AST (SGOT) 13 IU/L 0-40 Not Available [facility] ([facility]) [address] [facility], [place], [address], 11/15/2023 08:26:52 11/14/19 24 11/15/2023 CMP14 +EGFR ALT (SGPT) 12 IU/L 0-32 Not Available [facility] ([facility]) [address] [facility], [place], [address], 11/15/2023 08:26:52 11/14/19 24 11/15/2023 VITAM IN D, 25-HY DROXY vitamin D, 25-hydroxy 28.7 NG/mL 30.0-1 00.0 below low normal Vitam in D defic iency has been defin ed by the Insti tute of Medic ine and an Endoc rine Socie ty pract ice guide line as a level of serum 25-OH vitam in D less than 20 ng/mL (1,2) . The Endoc rine Socie ty went on to furth er defin e vitam in D insuf ficie ncy as a level betwe en 21 and 29 ng/mL (2). 1. IOM (Inst itute of Medic ine). 2010. Dieta ry refer ence shyam es for calci um and D. Deysi smith DC: The [facility] Press . 2. Holic jazmin MF, Mckenzie silva [place], Avelino off-F errar i CARMEN, et al. Evalu ation , treat ment, and preve ntion of vitam in D defic iency : an Endoc rine Socie ty clini dom pract ice guide line. JCEM. 2010; 96(7) :1911 -30. Not Available [facility] ([facility]) [address] [facility], [place], [address], 11/15/2023 08:26:53 01/02/2001/03/2024 HEMOG LOBIN A1C hemoglobin A1C 6.0 % 4.8-5. 6 above high normal Predi abete s: 5.7 - 6.4 Diabe gennaro: >6.4 Glyce rosales contr ol for adult s with diabe gennaro: <7.0 Not Available [facility] ([facility]) [address] [facility], [place], [address], 01/03/2024 07:34:46 10/17/1910/16/2022 XR, foot, 3 or more view [facility] [address] [facility] [place] [address] XRay Report Proced ure(s) : XR foot LT min 3V Patien t: CECELIA MOORE Date of Servic e: : 1965 MR#: [id number] Age/Se x: 57 / F Acct:T [id number] ADM Date:[address]: Cody in Franko D.P.MOanh Orderi ng Physic arthur: Cody Seay in D.P.M. Access ion Number (s): [id number] cc: Cody Seay in D.P.M. ; Ronna Galaviz nnnasima Examin ation: XR foot LT min 3V Date: 10/17/19 3:15 PM Histor y: Left foot pain. Compar renetta: X-ray left foot 023, 09/18/19 23 Techni que: 3 views of the left foot were obtain ed. Findin gs: Redemo nstrat ion of a contou r irregu larity at the base of the middle phalan x fourth toe, best seen on the obliqu e images consis tent with a fractu re deform ity. This remain s age indete rminat e. This is subopt imally evalua edwin on the latera l view due to overla pping osseou s struct ures. Unchan ged ossifi cation betwee n the third and fourth metata rsals, possib ly relate d to remote prior trauma . No new acute fractu re is visual ized. Fragme nted retroc alcane al enthes ophyte the insert ion of the Achill es tendon . Tiny planta r calcan eal enthes ophyte . 026 XR/XR foot LT min 3V IMPRES ANTHONY: Redemo nstrat ion of a contou r irregu larity at the base of the middle phalan x fourth toe consis tent with a fractu re deform ity. This appear s overal l simila r to the prior exam given slight differ ences in techni que. This is subopt imally evalua edwin on the latera l view which limits assess ment for disloc ation due to overly ing toes. Electr onical ly Signed By: Vale Manley MD on 10/17/19 23 5:07 PM Dictat ed By: Xuan Manley any Signed By: 1707 DD/DT: 1653 TD/TT: Transc riptio nist: [email or web address] [facility] ([facility]) [address] [place], [address], 02/13/2023 15:54:44 12/05/1912/04/2022 XR, chest No observ ation record ed. ana8 [facility] [address] [facility], [place], [address], 12/05/2022 09:29:17 01/20/20 23 01/17/2023 MAMMO , scree caleb, digit al, bilat eral No observ ation record ed. [facility] [address], [place], [address], 01/21/2023 22:00:51 01/27/20 23 01/24/2023 MRI, brain , w/o contr ast No observ ation record ed. [facility] [address], [place], [address], 02/05/2023 13:49:12 04/12/19 25 04/09/2024 MAMMO , scree caleb, digit al, bilat eral No observ ation record ed. [facility] [address], [place], [address], 04/11/2024 17:14:19 07/27/19 25 07/18/2024 XR, hip, unila teral No observ ation record ed. Not Available 2024 16:32:06 Result Notes None recorded. Problems Name Problem SNOMED Code Status Onset Date Resolution Date Notes Provider Name and Address Organization Details Recorded Time Depressive disorder 20610649 Active 2019 Adelia Galaviz MD Attn: Chidi hong,[address] [facility], [place], [address], [place] [facility] 2 13:07:26 Hyperlipidemia 79974692 Active 2019 Adelia Galaviz MD Attn: Chidi hong,[address] [facility], [place], [address], [place] [facility] 2 13:07:26 Vitamin D deficiency 04050476 Active 2019 Adelia Galaviz MD Attn: Chidi hong,[address] [facility], [place], [address], [place] [facility] 2 13:07:26 Hyperglycemia 97765190 Active 2023 A1c 6% 4 Adelia Galaviz MD Attn: Chidi hong,[address] [facility], [place], [address], [place] [facility] 4 09:30:27 Problem Notes None recorded. Procedures Surgical History Date Name Laterality Status Provider Name and Address Organization Details Recorded Time 10/17/19 23 Injection completed MONTSE SEAY DPM [address], [place], [address], [facility] 10/16/2022 16:06:13 10/01/19 23 Injection completed MONTSE SEAY DPM [address], [place], [address], [facility] 09/30/2022 11:24:22 09/18/19 23 Injection completed MONTSE SEAY DPM [address], [place], [address], [facility] 09/18/2022 16:58:11 02/09/19 02 Total hysterectomy completed Adelia Galaviz MD Attn: Accounting,[address] [place], [address], [facility] - COUNT [facility]CLUDES [facility] 10/25/2019 14:14:52 operation on breast completed Adelia Galaviz MD Attn: Accounting,[address] [facility], [place], [address], [facility] 10/25/2019 14:15:11 Imaging Results None recorded. Procedure Notes None recorded. Medical Equipment None Reported. Allergies Allergen ID Allergen Name Allergen Category Reaction Reaction Severity Criticality Documentation Date Start Date Code Code System Note Provider Name and Address Organization Details Recorded Time 490049 Lexapro medicatio n dizziness severe Not available 10/31/2019 29481 1 RxNorm Jimena lock, RN null, [facility] 0 11:46:58 Medications Name Sig Start Date Stop Date Status Note LastModified by Organization Details LastModified Time fluoxetin e 40 mg capsule TAKE 1 CAPSULE BY MOUTH DAILY 2024 active Not Available Not Available Not Avai lable promethaz ine-DM 6.25 mg-15 mg/5 mL oral syrup TAKE 5 ML BY MOUTH EVERY 4 TO 6 HOURS NEEDED FOR COUGH 12/11 completed Not Available Not Available Not Available venlafaxi ne ER 37.5 mg capsule,e xtended release 24 hr TAKE 1 CAPSULE BY MOUTH EVERY DAY 10/17 completed Not Available Not Available Not Available venlafaxi ne ER 75 mg capsule,e xtended release 24 hr TAKE 2 CAPSULES BY MOUTH EVERY DAY 11/10 completed Not Available Not Available Not Available atorvasta tin 20 mg tablet Take 1 tablet every day by oral route. 2024 active Not Available Not Available Not Avai lable ciproflox acin 750 mg tablet TAKE 1 TABLET BY MOUTH ONE TIME 09/10 completed Not Available Not Available Not Available loperamid e 2 mg capsule TAKE 2 CAPSULES BY MOUTH INITIALL Y FOLLOWED BY 1 CAPSULE WITH EACH LOOSE STOOL. MAX OF 6 CAPSULES PER DAY 09/10 completed Not Available Not Available Not Available azithromy doreen 250 mg tablet TAKE 2 TABLETS BY MOUTH FOR 1 DAY THEN TAKE 1 TABLET BY MOUTH EVERY DAY 04/21 completed Not Available Not Available Not Available ibuprofen 800 mg tablet TAKE 1 TABLET BY MOUTH THREE TIMES DAILY WITH MEALS 10/30 completed Not Available Not Available Not Available amoxicill in 500 mg tablet TAKE 2 TABLETS BY MOUTH EVERY 12 HOURS FOR 10 DAYS 04/21 completed Not Available Not Available Not Available simvastat in 40 mg tablet TAKE 1 TABLET BY MOUTH EVERY DAY 12/15 completed Not Available Not Available Not Available ondansetr on 8 mg disintegr ating tablet DISSOLVE 1 TABLET ON THE TONGUE EVERY 8 HOURS FOR 3 DAYS NEEDED 09/10 completed Not Available Not Available Not Available Kenalog 40 mg/mL suspensio n for injection Take 0.25 mL by injectio n route. 11/10 completed Not Available Not Available Not Available benzonata te 100 mg capsule TAKE 1 CAPSULE BY MOUTH THREE TIMES DAILY FOR 10 DAYS 04/21 completed Not Available Not Available Not Available simvastat in 20 mg tablet TAKE 1 TABLET BY MOUTH EVERY DAY 10/17 completed Not Available Not Available Not Available fluoxetin e 10 mg capsule Take 1 capsule every day by oral route. 10/21 completed Not Available Not Available Not Available sertralin e 25 mg tablet Take 1 tablet every day by oral route. 12/05 completed Not Available Not Available Not Available ergocalci ferol (vitamin D2) 1,250 mcg (50,000 unit) capsule TAKE 1 CAPSULE BY MOUTH ONCE A WEEK 10/30 completed Not Available Not Available Not Available methylpre dnisolone 4 mg tablets in a dose pack FOLLOW PACKAGE DIRECTIO NS 12/11 completed Not Available Not Available Not Available albuterol sulfate HFA 90 mcg/actua tion aerosol inhaler INHALE 1 TO 2 PUFFS BY MOUTH EVERY 4 HOURS NEEDED FOR WHEEZING 10/30 completed Not Available Not Available Not Available fluoxetin e 20 mg capsule TAKE 1 CAPSULE BY MOUTH EVERY DAY 01/25 completed Not Available Not Available Not Available amoxicill in 875 mg-potass ium clavulana te 125 mg tablet TAKE 1 TABLET BY MOUTH EVERY 12 HOURS active Not Available Not Available No t Available escitalop facundo 10 mg tablet Take 1 tablet every day by oral route. 10/30 completed dizzines s, blurred vision Not Available Not Available Not Available bupropion HCl XL 150 mg 24 hr tablet, extended release TAKE 1 TABLET BY MOUTH EVERY DAY 03/20 completed very emotiona l and crying Not Available Not Available Not Available cholecalc iferol (vitamin D3) 25 mcg (1,000 unit) tablet Take 1 tablet every day by oral route for 90 days. 2023 active Not Available Not Available Not Avai lable Vitals Date Recorded Body height Body mass index (BMI) Body weight Body temperature Systolic And Diastolic Provider Name and Address Organization Details Last Updated DateTime 04/14/2023 160.02 cm 30.5 kg/m2 52712.8 9 g 97.8 [degF] 133/83 mm[Hg] Deborah Chowdhury [place] [facility] 4 17:10:36 Date Recorded Body height Body mass index (BMI) Body weight Body temperature Heart rate Oxygen saturation Oxygen saturation in Arterial blood by Pulse oximetry Systolic And Diastolic Provider Name and Address Organization Details Last Updated DateTime 4 160.02 cm 31.2 kg/m2 97167.2 6 g 97.3 [degF] 91 /min 96 % 96 % 119/81 mm[Hg] Kemi Fitzgearld [place] [facility] 4 17:19:38 Date Recorded Body height Body mass index (BMI) Body weight Body temperature Heart rate Systolic And Diastolic Provider Name and Address Organization Details Last Updated DateTime 3 160.02 cm 29.9 kg/m2 99806.1 1 g 97.6 [degF] 86 /min 127/86 mm[Hg] Deborah Chowdhury MA [facility] 3 16:55:26 Date Recorded Body height Body temperature Body mass index (BMI) Body weight Heart rate Oxygen saturation Oxygen saturation in Arterial blood by Pulse oximetry Systolic And Diastolic Provider Name and Address Organization Details Last Updated DateTime 3 160.02 cm 97.7 [degF] 29.8 kg/m2 10187.5 2 g 92 /min 98 % 98 % 122/80 mm[Hg] Kemi Fitzgerald MA [facility] 3 17:41:53 Date Recorded Body height Body mass index (BMI) Body weight Body temperature Heart rate Systolic And Diastolic Provider Name and Address Organization Details Last Updated DateTime 3 160.02 cm 29.6 kg/m2 19795.9 3 g 97.5 [degF] 86 /min 136/86 mm[Hg] Deborah Chowdhury MA [facility] 3 17:25:39 Social History Question Answer Notes LastModified by [employer] ion Details LastModified Time Tobacco Smoking Status Current Every Day [facility] 10/25/2019 11:15:43 What Was The Date Of Your Most Recent Tobacco Screening? 04/14/2023 Information not available 04/14/2023 How Much Tobacco Do You Smoke? 2 PPD Information not available 11/10/2022 On What Date Was Tobacco Cessation Counseling Provided? 10/16/2022 [email or web address] Information not available 10/16/2022 How Many Years Have You Smoked Tobacco? 43 Information not available 10/25/2019 Sex: Unknown Functional Status Question Answer Note LastModified by [employer] ion Details LastModified Time Do you or have you ever used any other forms of tobacco or nicotine? No [email or web address] Information not available 12/09/2022 Do you or have you ever used smokeless tobacco? Never used smokeless tobacco Information not available 12/06/2019 Do you or have you ever used e-cigarettes or vape? Never used electronic cigarettes Information not available 12/06/2019 Mental Status None recorded. Family History Relationship Description Onset Age of this Age Resolved Age Notes LastModified by Organization Details LastModified Time Mother Harmful pattern of use of alcohol Not available 2019 14:12:50 Mother Malignant tumor of breast Not available 2019 14:13:01 Mother Osteoporosis Not availab le 10/25/2019 14:13:51 Brother Harmful pattern of use of alcohol Not available 2019 14:12:50 Brother Dementia Not available 10/25/2019 14:13:17 Brother Hypercholest erolemia Not available 2019 14:13:38 Brother Malignant tumor of pharynx Not available 2019 14:14:05 Medical History Condition Response Anxiety Disorder Y Muscle, Joint, or Bone Problems Y High Cholesterol Y Kidney or Bladder Problems Y Depression Y Osteoporosis Y Gynecological HistoryNo gynecological history recorded. Obstetrics History GPAL:G 0 P 0 0 0 0 Immunizations Vaccine Type Date Status Note Provider Nam e and Address Organization Details Recorded Time COVID-19 vaccine, vector-nr, rS-Ad26, PF, 0.5 mL 04/19/2020 completed Adelia Galaviz MD Attn: [address] [place], [address], [place] [facility] 01/29/2021 13:57:08 COVID-19, mRNA, LNP-S, PF, 100 mcg/0.5mL dose or 50 mcg/0.25mL dose 12/18/2020 completed Adelia Galaviz MD Attn: [address] [place], [address], [place] [facility] 01/29/2021 13:57:23 Past Encounters Encounter ID Performer Location Encounter Start Date Encounter Closed Date Diagnosis/Indication Diagnosis SNOMED-CT Code Diagnosis ICD10 Code Diagnosis Note [id number] [facility] [address] [place] [address] 10/25/2019 10:58:51 10/26/2019 13:48:43 Hyperlipidemia 21956523 E78.5 Vitamin D deficiency 347 22900 E55.9 Depressive disorder 3548 9007 F32.9 -CBT recommende d, declined at this time-Start SSRI, use and common side effects reviewed-f /u 6 weeks Screening mammography 24 127333 Z12 -Mammo due in January- ecord release for medical records Smoker 70004760 F17.363 [id number] MD [facility] ([facility]) [address] [place] [address] 12/06/2019 11:20:01 12/06/2019 12:10:34 Depressive disorder 67209215 F32.9 -CBT declined-D iscussed medication options-Wi ll try to start low dose Effexor-f/ u 6 weeks Screening for malignant neoplasm of colon 927508893 Z12.11 -FIT test-Decli georgina flu shot Overweight 858468720 E66 .3 [id number] MD [facility] ([facility]) [address] [place] [address] 03/21/2020 10:55:15 03/22/2020 09:09:38 Abdominal pain 14794765 R10.9 I advised Mr. Rothman that she does not have any red flag symptoms that are concerning for acute abdomen. I agree that her lack of urinary symptoms gives low suspicion for UTI. We discussed several treatment options including managing conservati vely with tylenol and monitoring symptoms, checking a UA for cystitis and obtaining a CT for further evaluation . After discussing pros and cons of each approach Ms. Rothman informed me that she would like to schedule a CT. I advised that she go to the ER if pain becomes severe or any other worrisome symptoms develop. I will contact her with CT results when the report is available and have her f/u with her PCP for follow up care. She expressed understand ing and agreed to this treatment plan. [id number] MD [facility] ([facility]) [address] [place] [address] 01/28/2021 15:51:09 01/30/2021 11:06:54 Hyperlipidemia 82127294 E78.5 -Chronic, check lipids Vitamin D deficiency 347 62306 E55.9 Screening mammography 24 918681 Z12.31 Screening for malignant neoplasm of colon 241481896 Z12.11 Depressive disorder 3548 7 F32.9 -Chronic, stable-Con tinue venlafaxin e Overweight 503594242 E66 .3 [id number] MD [facility] ([facility]) [address] [place] [address] 02/12/2021 13:59:22 02/13/2021 14:52:27 Reduced libido 3062965 R68.82 -Chronic, stable-Dis cussed risks and benefits of hormone therapy, risk outweighs benefits-T ry to switch from venlafaxin e to Wellbutrin (she has tried in the past for smoking cessation) -Offered CBT, she declines for now-f/u 6 weeks Depressive disorder 6637 0457 F32.9 -Chronic, uncontroll ed-Change to Wellbutrin Overweight 741257267 E66 .3 [id number] TIARA [facility] ([facility] [address] [place] [address] 09/04/2021 14:09:03 09/05/2021 12:33:16 Traveler's diarrhea 91786118 A04.1 hydration stressedre port to ED if s/s worsenfu c pcp within 2 weeks/prnc all CCC if lacking resolution within a few days [id number] MD [facility] ([facility]) [address] [place] [address] 09/10/2021 10:02:59 09/11/2021 13:11:19 Depressive disorder 03838850 F32.9 Overweight 576016614 E66 .3 Smoker 35258753 F17.230 [id number] MD [facility] ([facility]) [address] [place] [address] 09/24/2021 09:05:17 09/25/2021 16:41:09 Depressive disorder 00109286 F32.9 -Chronic, stable-Eff exor increased 2 weeks ago w/o side effects-Co ntinue CBT-FMLA completed- f/u 2-3 months Otalgia 94879164 H92.01 -Serous otitis-Dec lined Flonase and cetirizine at this time-Call if worsening Skin lesion 81269258 L98 .9 -Benign dermatofib romas and skin tag-Reassu red-Can remove if they become larger or bothersome Overweight 229227050 E66 .3 [id number] MD [facility] ([facility]) [address] [place] [address] 11/05/2021 11:08:41 11/06/2021 14:38:28 Pneumonia 439587825 J18.9 -Acute, improved-C omplete antibiotic s-PB and Tessalon prn-Call if worsening symptoms Overweight 137665908 E66 .3 [id number] MD [facility] ([facility]) [address] [place] [address] 04/21/2022 14:03:56 04/24/2022 08:57:09 Depressive disorder 97089789 F32.9 -Chronic, uncontroll ed-Increas e Effexor-Co ntinue CBT-f/u 4 weeks (scheduled ) Smoker 64065522 F17.200 Overweight 174974669 E66 .3 [id number] MONTSE SEAY DPM [facility] [address] [place] [address] 09/17/2022 10:16:05 09/23/2022 07:28:47 Lesion of left plantar nerve 6666495650 14744 G57.62 The patient was educated about how neuromas are created and worsen. The patient was given a strong recommenda tion for orthotics with a met pad to reduce pressure to the forefoot. The patient was also offered an injection to help reduce the inflammati on around the nerve in the left 3rd interspace . The patient was told to wear proper shoes/orth otics and to reduce stress to the area. The patient was also given informatio n regarding NSAIDS and all surgical options as needed. Metatarsal bone fracture 555654514 S92.335S S92.345S X-rays were reviewed with the patient and the patient was educated regarding all treatments and the risks for worsening of the area (see x-ray report). I have educated the patient regarding the need for surgery versus conservati ve treatment. I discussed NSAIDs and pain medication to reduce pain and inflammati on. Metatarsalgia 99424355 M 77.42 The patient was educated regarding how to mechanical ly stabilize and offload the patient's deformity. The patient was given education about shoe recommenda tions designed to further offload and take pressure off of the prominent plantar deformity. The patient was educated about custom orthotics and how appropriat e shoes and orthotics can prevent further worsening of the deformity. The patient was educated about how bad shoe habits can worsen the condition. NSAIDS, P.T., injections and other conservati ve treatments were discussed. Pain in left foot 749281 9386 94893 M79.160 [id number] MONTSE SEAY DPM [facility] [address] [place] [address] 09/30/2022 09:35:52 10/02/2022 08:55:28 Lesion of left plantar nerve 2190533259 23366 G57.62 The patient was educated about how neuromas are created and worsen. The patient was given a strong recommenda tion for orthotics with a met pad to reduce pressure to the forefoot. The patient was also offered an injection to help reduce the inflammati on around the nerve in the left 3rd interspace . The patient was told to wear proper shoes/orth otics and to reduce stress to the area. The patient was also given informatio n regarding NSAIDS and all surgical options as needed. Metatarsal bone fracture 911236209 S92.335S S92.345S X-rays were reviewed with the patient and the patient was educated regarding all treatments and the risks for worsening of the area (see x-ray report). I have educated the patient regarding the need for surgery versus conservati ve treatment. I discussed NSAIDs and pain medication to reduce pain and inflammati on.-contin ue ibuprofen 800mg po tid pc-contiue physical therapy prescribed 09/17/22 Metatarsalgia 26740218 M 77.42 The patient was educated regarding how to mechanical ly stabilize and offload the patient's deformity. The patient was given education about shoe recommenda tions designed to further offload and take pressure off of the prominent plantar deformity. The patient was educated about custom orthotics and how appropriat e shoes and orthotics can prevent further worsening of the deformity. The patient was educated about how bad shoe habits can worsen the condition. NSAIDS, P.T., injections and other conservati ve treatments were discussed. Pain in left foot 621543 0668 95282 M79.672 Foot pain 87844005 M79.6 72 left foot pain [id number] Adelia Galaviz MD [facility] ([facility]) [address] [place] [address] 10/14/2022 15:46:29 10/23/2022 12:27:46 Hyperlipidemia 65780838 E78.5 Vitamin D deficiency 347 93510 E55.9 Screening mammography 24 866407 Z12.31 Depressive disorder 3548 9007 F32.9 -Chronic, uncontroll ed-Taper off Effexor and on to fluoxetine , use and common side effects reviewed-C ontinue CBT-f/u 4-6 weeks Overweight 583159314 E66 .3 [id number] MONTSE SEAY DPM [facility] [address] [address] 10/16/2022 15:44:22 10/17/2022 07:58:33 Lesion of left plantar nerve 0735012344 65119 G57.62 The patient was educated about how neuromas are created and worsen. The patient was given a strong recommenda tion for orthotics with a met pad to reduce pressure to the forefoot. The patient was also offered an injection to help reduce the inflammati on around the nerve in the left 3rd interspace . The patient was told to wear proper shoes/orth otics and to reduce stress to the area. The patient was also given informatio n regarding NSAIDS and all surgical options as needed. Metatarsal bone fracture 010936816 S92.335S S92.345S X-rays were reviewed with the patient and the patient was educated regarding all treatments and the risks for worsening of the area (see x-ray report). I have educated the patient regarding the need for surgery versus conservati ve treatment. I discussed NSAIDs and pain medication to reduce pain and inflammati on.-contin ue ibuprofen 800mg po tid pc-contiue physical therapy prescribed 09/17/22 Metatarsalgia 48560368 M 77.42 The patient was educated regarding how to mechanical ly stabilize and offload the patient's deformity. The patient was given education about shoe recommenda tions designed to further offload and take pressure off of the prominent plantar deformity. The patient was educated about custom orthotics and how appropriat e shoes and orthotics can prevent further worsening of the deformity. The patient was educated about how bad shoe habits can worsen the condition. NSAIDS, P.T., injections and other conservati ve treatments were discussed. Pain in left foot 722639 5017 20135 M79.672 Foot pain 38730254 M79.6 72 left foot pain [id number] [facility] [address] [place] [address] 10/30/2022 16:12:11 10/31/2022 07:54:10 Lesion of left plantar nerve 8763521249 95430 G57.62 The patient was educated about how neuromas are created and worsen. The patient was given a strong recommenda tion for orthotics with a met pad to reduce pressure to the forefoot. The patient was also offered an injection to help reduce the inflammati on around the nerve in the left 3rd interspace . The patient was told to wear proper shoes/orth otics and to reduce stress to the area. The patient was also given informatio n regarding NSAIDS and all surgical options as needed. Metatarsal bone fracture 303866308 S92.335S S92.345S X-rays were reviewed with the patient and the patient was educated regarding all treatments and the risks for worsening of the area (see x-ray report). I have educated the patient regarding the need for surgery versus conservati ve treatment. I discussed NSAIDs and pain medication to reduce pain and inflammati on.-contin ue ibuprofen 800mg po tid pc prn-contiu e physical therapy prescribed 09/17/22 Metatarsalgia 99144696 M 77.42 The patient was educated regarding how to mechanical ly stabilize and offload the patient's deformity. The patient was given education about shoe recommenda tions designed to further offload and take pressure off of the prominent plantar deformity. The patient was educated about custom orthotics and how appropriat e shoes and orthotics can prevent further worsening of the deformity. The patient was educated about how bad shoe habits can worsen the condition. NSAIDS, P.T., injections and other conservati ve treatments were discussed. Pain in left foot 854314 3050 40157 M79.672 Foot pain 69654631 M79.6 72 left foot pain [id number] Adelia Galaviz MD [facility] ([facility]) [address] [place] [address] 11/10/2022 16:47:35 11/13/2022 13:16:27 Depressive disorder 42150886 F32.9 -Chronic, uncontroll ed-Tapered off Effexor and on fluoxetine 20mg X 2 days, stable-Con tinue CBT-f/u 4-6 weeks Overweight 713024507 E66 .3 [id number] MD [facility] ([facility]) [address] [place] [address] 12/09/2022 17:05:39 12/12/2022 10:23:43 Depressive disorder 97355455 F32.9 -Chronic, uncontroll ed-Tapered off Effexor and on fluoxetine 20mg, increase to 40mg-Leena nue CBT-f/u 4-6 weeks Memory impairment 578012 006 R41.3 -Acute, uncontroll ed-blurred vision, headaches, behavior changes, poor concentrat ion and problems with short term memory-Maria Elena ck lab and MRI brain Malaise and fatigue 2717 30250 R53.81 -Chronic, uncontroll ed-Increas e SSRI and check labs as above Overweight 798060988 E66 .3 [id number] Adelia Galaviz MD [facility] ([facility]) [address] [place] [address] 01/12/2023 17:17:52 01/26/2023 17:16:44 Depressive disorder 55724244 F32.9 -Chronic, improved-C ontinue Prozac 40mg-Leena nue CBT-f/u 3-6 months Overweight 509666063 E66 .3 [id number] Adelia Galaviz MD [facility] ([facility]) [address] [place] [address] 04/14/2023 17:04:32 04/20/2023 10:27:09 Depressive disorder 68926993 F32.9 -Chronic, improved-C ontinue Prozac 40mg-Leena nue CBT-f/u 6 months Obesity 952459830 E66.9 [id number] MD [facility] ([facility]) [address] [place] [address] 10/30/2023 17:12:46 11/02/2023 17:35:41 Hyperlipidemia 57610733 E78.5 Vitamin D deficiency 347 75770 E55.9 Screening mammography 24 858278 Z12.31 Depressive disorder 3548 9007 F32.9 -Chronic, improved-C ontinue Prozac 40mg-f/u 6 months Obesity 569860851 E66.8 Smoker 55589119 F17.200 Health Concerns Section Related Observation LastModified by Organization Detai ls LastModified Time None Recorded Concern Status LastModified by Organization Details LastModified Time None Recorded Advance Directives Directive None Recorded Payers Insurance Date Sequence Insurance Name Policy Number Policy Chan Covered Member ID Chan Member ID Guarantor Name 10/30/2023 1 [employer] [id number] [facility] [id number] [facility] 06/11/2020 PAYMENT PLAN [facility] 10/30/2023 1 [place] [id number] [facility] [id number] [facility] 06/06/2024 1 [place] [id number] [facility] A Bassam [id number] [facility] 10/14/2022 SLIDING FEE SCHEDULE - DISCOUNT [facility] 10/14/2022 1 *SELF PAY* Momin Notes Date Note Type Note Provider Name and Address Organization Details Recorded Time 11/10/2022 text/html Swapna is here to f /u depression. She had 3 suicide attempts this spring and she was hospitalized. The psychiatrist just increased her Effexor, but it did not help. She had side effects with both sertraline and escitalopram including anxiety, palpitations, restlessness, and nausea. She has some problems with insomnia and feeling down and unmotivated. This has been present for most of her life. She still has some SI and has a safety plan. Her new job is going OK. She tapered off the Effexor and has started the 20mg dose of fluoxetine (2 days). No current side effects, mood improved. Adelia Galaviz MD Attn: [address] [place], [address], [facility] 11/10/2022 21:15:51 12/09/2022 text/html Swapna is here to f /u depression. She had 3 suicide attempts this spring and she was hospitalized. The psychiatrist just increased her Effexor, but it did not help. She had side effects with both sertraline and escitalopram including anxiety, palpitations, restlessness, and nausea. She has some problems with insomnia and feeling down and unmotivated. This has been present for most of her life. She still has some SI and has a safety plan. Her new job is going OK. She tapered off the Effexor and has been on the 20mg dose of fluoxetine. She feels flat and tired on the medication. No SI. 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 She has a h/o concussion. She has a general fogginess, problems word finding, and problems with short term memory. Her sleep is OK, no frequent waking. Adelia Galaviz MD Attn: Accounting[address] [place], [address], [facility] 12/11/2022 21:41:33 01/12/2023 text/html Swapna is here to f /u depression. She had 3 suicide attempts this spring and she was hospitalized. The psychiatrist just increased her Effexor, but it did not help. She had side effects with both sertraline and escitalopram including anxiety, palpitations, restlessness, and nausea. She has some problems with insomnia and feeling down and unmotivated. This has been present for most of her life. She still has some SI and has a safety plan. Her new job is going OK. She tapered off the Effexor and has been on the 40mg dose of fluoxetine with improved mood. No SI. Adelia Galaviz MD Attn: Accounting[address] [place], [address], [facility] 01/25/2023 12:25:09 04/14/2023 text/html Swapna is here to f /u depression. She had 3 suicide attempts last year and she was hospitalized. She had side effects with both sertraline and escitalopram including anxiety, palpitations, restlessness, and nausea. She has some problems with insomnia and feeling down and unmotivated. This has been present for most of her life. She still has some SI and has a safety plan. Her new job is going OK. She tapered off the Effexor and has been on the 40mg dose of fluoxetine with improved mood. She feels this dose is adequate. Adelia Galaviz MD Attn: Accounting[address] [place], [address], [facility] 04/17/2023 09:25:37 10/30/2023 text/html Swapna is here to f /u depression. She had side effects with both sertraline and escitalopram including anxiety, palpitations, restlessness, and nausea. She has some problems with insomnia and feeling down and unmotivated. This has been present for most of her life. Denies SI. She tapered off the Effexor and has been on the 40mg dose of fluoxetine with improved mood. She feels this dose is adequate. Adelia Galaviz MD Attn: Accounting[address] [place], [address], [facility] 10/31/2023 08:56:38 OBGyn Episode No OBEpisode recorded.
--- OUTSIDE RECORDS SUMMARY | 2024-08-16 14:30 | XMS_ITS | Clinical Summary ---
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 Gender Identity Not on file Sexual Orientation Not on file Plan of Treatment Health Maintenance Due Date Last Done Comments Hepatitis C Virus (HCV) Screening 1965 TdaP Immunization 1965 Hepatitis B Immunization (1 of 3 - 19+ 3-dose series) 1984 Colonoscopy 2010 Colorectal Cancer Screening 2010 Cologuard 05/04/2015 Immunochemical Fecal Occult Blood 05/04/2015 Pneumococcal Immunization (5 0+ years) (1 of 1 - PCV) 05/04/2015 Zoster Immunization (1 of 2) 05/04/2015 SARS-COV-2 Immunization (3 - ) 10/11/2023 12/18/2020, 04/19/2020 Influenza Immunization (Seas on Ended) 2024 Respiratory Syncytial Virus (RSV) Immunization (Adult) (1 - 1-dose 75+ series) 2040 Human Papillomavirus (HPV) Immunization Aged Out No longer eligible b ased on patient's age to complete this topic Meningococcal Immunization (ACWY) Aged Out No longer eligible b ased on patient's age to complete this topic Rotavirus Immunization Aged Out No lo nger eligible based on patient's age to complete this topic
== END 2024-08-16 14:23 | disposition home or self-care (01) ==
PROVIDERS: PCP Family Medicine; Visit Provider Nurse Practitioner Family
DX: M16.12 Unilateral primary osteoarthritis, left hip (principal)
CPT/HCPCS: 20610; 77002; J1010; Q9966

== ENCOUNTER 2024-11-08 15:19 | Outpatient (CLI) | payer BC, SELFPAY ==
--- OUTSIDE RECORDS SUMMARY | 2024-11-08 15:25 | XMS_ITS | Clinical Summary ---
Author Organization [facility] Address [facility] [place] [address] Care Team Providers Care Tavern Car Attendant Name Role Phone Meenakshi Galaviz MD Primary Care Provider [phone] Allergies No known active allergies Medications FLUoxetine (PROZAC) 40 MG capsule Take 1 capsule (40 mg total) by mouth daily. Active atorvastatin (LIPITOR) 20 MG tablet Take 1 tablet (20 mg total) by mouth nightly at bedtime. Active Encounters Date Type Department Care Team Description 11/04/2024 Travel from Last 3 Months Social History Tobacco Use Types Packs/Day Years Used Date Smoking Tobacco: Former Cigarettes Q uit: 2024 Smokeless Tobacco: Never Tobacco Cessation:Counseling Given: Not Answered Alcohol Use Standard Drinks/Week Comments Yes 6.7 (1 standard drink = 0.6 oz p ure alcohol) Comments Unknown Sex and Gender Information Value Date Recorded Sex Assigned at Not on file Legal Sex Female 7:40 PM CDT Gender Identity Not on file Sexual Orientation Not on file Last Filed Vital Signs Vital Sign Reading Time Taken Comments Blood Pressure - - Pulse - - Temperature - - Respiratory Rate - - Oxygen Saturation - - Inhaled Oxygen Concentration - - Weight 77.1 kg (170 lb) 11/04/2024 10:13 AM CDT Height 160 cm (5' 3) 11/04/2024 10:13 AM CDT Body Mass Index 30.11 11/04/2024 10:13 AM CDT Plan of Treatment Upcoming Encounters Date Type Department Care Team (Late st Contact Info) Description 11/10/2024 9:30 AM CDT Hospital Encounter [facility] [place] [address] Pita Mccray MD [address] [place] [address] [place] [address] [id number] 11/10/2024 9:30 AM CDT - 11/10/2024 10:00 AM CDT Surgery [facility] [place] [address] Pita Mccray MD [address] [place] [address] [place] [id number] COLONOSCOPY Scheduled Procedures Name Priority Associated Diagnoses Date/Ti me COLONOSCOPY Pos cologuard 11/10/2024 9:30 AM CDT Health Maintenance Due Date Last Done Comments Colorectal Cancer Screening Colonoscopy (10 Years) 1965 Annual Physical 1968 Hepatitis C 05/04/1983 DTaP, Tdap and Td Vaccines ( 1 - Tdap) 1984 Mammogram Screening 2005 Pneumococcal Vaccine: 50+ Years (1 of 1 - PCV) 05/04/2015 Zoster Vaccines (1 of 2) 05/04/2015 COVID-19 Vaccine (3 - 2024-2 6 season) 2024 12/18/2020, 04/19/2020 Meningococcal B Vaccine Aged Out No l onger eligible based on patient's age to complete this topic Meningococcal Vaccine Aged Out No nathaniel tory eligible based on patient's age to complete this topic RSV Immunizations Under 20 Months Aged Out No longer eligible b ased on patient's age to complete this topic Goals Goal Patient Goal Type Associated Problems Recent Progress Patient-Stated? Author Autogenerat ed Goal Care Plan Autogenerated Problem No Izzy Kim Additional Health Concerns Active Problems Noted Date Diagnosed Date Autogenerated Problem 11/02/2024 Insurance [facility] Care Teams Tavern Car Attendant Relationship Specialty Start Date End Date Meenakshi Galaviz MD [address] [facility] [address] [place] [address] PCP - General FAMILY PRACTICE 11/08/24
--- OUTSIDE RECORDS SUMMARY | 2024-11-08 15:25 | XMS_ITS | Clinical Summary ---
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 Gender Identity Not on file Sexual Orientation Not on file Plan of Treatment Health Maintenance Due Date Last Done Comments Hepatitis C Virus (HCV) Screening 1965 TdaP Immunization 1965 Hepatitis B Immunization (1 of 3 - 19+ 3-dose series) 1984 Pap Smear 1986 Cervical Cancer Screening (CCS) 05/04/1995 HPV/Cotest 05/04/1995 Cologuard 2010 Colonoscopy 2010 Colorectal Cancer Screening 2010 Immunochemical Fecal Occult Blood 2010 Pneumococcal Immunization (5 0+ years) (1 of 1 - PCV) 05/04/2015 Zoster Immunization (1 of 2) 05/04/2015 Influenza Immunization (#1) 2024 SARS-COV-2 Immunization (3 - 2024- season) 2024 12/18/2020, 04/19/2020 Respiratory Syncytial Virus (RSV) Immunization (Adult) (1 [...]
--- OUTSIDE RECORDS SUMMARY | 2024-11-08 15:25 | XMS_ITS | Clinical Summary ---
Author Organization [facility] Address [address] [id number] Phone Care Team Providers Care Chemical Radiation Technician Name Role Phone Unavailable Primary Care Provider Unavailabl e Social History Tobacco Use Types Packs/Day Years Used Date Smoking Tobacco: Never Assessed Comments Unknown Sex and Gender Information Value Date Recorded Sex Assigned at Not on file Legal Sex Female 2:35 PM EDT Gender Identity Not on file Sexual Orientation Not on file Plan of Treatment Upcoming Encounters Date Type Department Care Team (Late st Contact Info) Description 11/21/2024 9:00 AM CDT Office Visit [facility] Medicine [address] [facility] [place] [id number] Fatoumata Saeed, [facility] [address] [place] [address] Health Maintenance Due Date Last Done Comments HIV Screening 1965 MMR Vaccines (1 of 1 - Stand pam series) 1966 DTaP/Tdap/Td Vaccines (1 - Tdap) 1972 Hepatitis B Screening 05/04/1983 Hepatitis C Screening 05/04/1983 Well Adult Exam (Age 18+ Yue ual Physical) 05/04/1983 Hepatitis B Vaccines (1 of 3 - 19+ 3-dose series) 1984 Pap Smear 1986 Cervical Cancer Screening 05/04/1995 HPV/Cotest 05/04/[address] Colonography 2010 Colonoscopy 2010 Colorectal Cancer Screening 2010 FIT-DNA 2010 FIT 2010 FOBT 2010 Sigmoidoscopy 2010 Pneumococcal Vaccine: 50+ Ye ars (1 of 1 - PCV) 05/04/2015 Zoster Vaccines (1 of 2) 05/04/2015 COVID-19 Vaccine (1 2023-2 5 season) 2024 Influenza Vaccine (#1) 2024 HIB Vaccines Aged Out No longer eligi ble based on patient's age to complete this topic HPV Vaccines (No Doses Required) Completed Hepatitis A Vaccines Aged Out No long er eligible based on patient's age to complete this topic IPV Vaccines Aged Out No longer eligi ble based on patient's age to complete this topic Meningococcal B Vaccine Aged Out No l onger eligible based on patient's age to complete this topic Meningococcal Vaccine Aged Out No nathaniel tory eligible based on patient's age to complete this topic Rotavirus Vaccines Aged Out No longer eligible based on patient's age to complete this topic
[2024-11-08 15:38] LABS: Hematocrit 39.1 % (37.0-47.0); Hemoglobin 12.9 g/dL (12.0-15.0); Immature Granulocyte Percent A 0.3 % (0-0.5); Lymphocytes Absolute Auto 1.80 K/mm3 (0.9-3.2); Mean Corpuscular HGB Conc 33.0 g/dl (32-36); Mean Corpuscular Hemoglobin 30.6 pg (26-34); Mean Corpuscular Volume 92.9 fl (80-100); Nucleated Red Blood Cells Absolute Auto 0.000 K/mm3 (0.0-0.012); Nucleated Red Blood Cells Perc 0.0 % (0.0-0.2); Platelet Count Result 326 k/mm3 (150-375); Red Blood Count 4.21 M/mm3 (4.2-5.4); White Blood Count 7.2 K/mm3 (4.5-10.0)
[2024-11-08 15:41] LABS: Add Urine Microscopic? NO; Appearance Urine Clear (Clear); Glucose Urine UA Negative (Negative); Leukocyte Esterase Ur Negative LEU/UL (Negative); Nitrate Urine Negative (Negative); Specific Grav Ur 1.004 (1.001-1.035)
[2024-11-08 15:52] LABS: Anion Gap 9 mmol/L (4-12); Blood Urea Nitrogen 11 mg/dL (7-17); Calcium 9.0 mg/dL (8.4-10.2); Carbon Dioxide 27 mmol/L (22-30); Chloride 100 mmol/L (98-107); Estimated Glomerular Filt Rate > 60; Glucose 93 mg/dL (65-110); Potassium 4.1 mmol/L (3.4-5.0); Sodium 136 mmol/L (137-145)
== END 2024-11-08 15:20 | disposition home or self-care (01) ==
LOC: ANHLAB 15:21
PROVIDERS: PCP Family Medicine; Visit Provider Nurse Practitioner Family
DX: E03.9 Hypothyroidism, unspecified (principal); I10 Essential (primary) hypertension; E78.5 Hyperlipidemia, unspecified; R53.83 Other fatigue; F17.200 Nicotine dependence, unspecified, uncomplicated
CPT/HCPCS: 80048; 80307; 81003; 85025